=== PATIENT | male | born 1950 | race Caucasian/White ===

== ENCOUNTER 2020-01-19 00:17 | Outpatient (CLI) | payer MEDICARE, SELFPAY ==
[2020-01-19 17:37] LABS: SARS-CoV-2 RNA PCR Negative
== END 2020-01-19 00:18 | disposition home or self-care (01) ==
LOC: ANHCOVIDDT 00:17
PROVIDERS: PCP Internal Medicine; Visit Provider Internal Medicine Gastroenterology
DX: Z01.812 Encounter for preprocedural laboratory examination (principal); Z20.828 Contact with and (suspected) exposure to other viral communicable diseases
CPT/HCPCS: 87635; C9803; U0003

== ENCOUNTER 2020-01-22 00:54 | Day surgery (SDC) | payer MEDICARE, SELFPAY ==
[2020-01-14 15:03] VITALS: BMI 30.9
[2020-01-22 06:20] VITALS: BP 164/82; PULSE 61; RESP 16; TEMP 36.5; O2SAT 97; BMI 30.5
[2020-01-22] MEDS: LACTATED RINGERS 1,000 ML 150 ML IV CONT (06:35)
[2020-01-22 06:36] LABS: Glucose Point of Care 133 (65-105)
--- NOTE | 2020-01-22 06:48 | WPDANESEPPF ---
Anes - Initial Pre Proc Eval Procedure: Operation Date: 01/22/20 07:30 Proposed Procedures p Screening Colonoscopy - Julián Sommer MD Date/Time: 01/22/20 06:48 Surgeon: Julián Sommer MD Pre Op Diagnosis: Hx of Colon Polyps Patient Data Age: 69 Gender: M Height: 5 ft 7 in Weight: 88.5 kg Last Vital Signs Temp 36.5 C 01/22/20 06:20 Pulse 61 01/22/20 06:20 Resp 16 01/22/20 06:20 BP 164/82 H 01/22/20 06:20 Pulse Ox 97 01/22/20 06:20 Allergies Allergy/AdvReac Type Severity Reaction Status Date / Time No Known Allergies Allergy Verified 01/22/20 06:19 Home Medications Medication Instructions Recorded Confirmed Type aspirin [Adult Low Dose Aspirin] 81 mg PO DAILY 01/14/20 01/14/20 History atorvastatin 40 mg PO DAILY 01/14/20 01/14/20 History metformin 1,000 mg PO BID 01/14/20 01/14/20 History metoprolol tartrate 50 mg PO BID 01/14/20 01/14/20 History Laboratory Tests 01/22/20 06:31 POC Capillary Glucose 133 mg/dl H mg/dl (65-105) Patient hx anesthesia problems: none Family hx anesthesia problems: none PMFSH Past Medical History Medical History (Updated 01/22/20 @ 06:49 by Dhiraj Portillo MD) Diabetes HTN (hypertension) Obesity EDMUNDO on CPAP Surgical History Surgical History (Updated 01/22/20 @ 06:49 by Dhiraj Portillo MD) History of ankle surgery History of appendectomy Social History Social History Smoking packs per day: 1.5 Smoking cigarettes per day: 30.0 Smoking status: Former smoker Tobacco type: cigarettes and cigars Alcohol intake: current Drinks per week: 12 Substance use: former Substance use type: marijuana Other substance usage details: 40 YRS AGO Living arrangements: with family Spiritual care concerns: No Anes - Eval Final PreProcedure Day of Procedure 01/22/20 06:48 Patient weight: obese Heart: regular rate and rhythm Lungs: clear to auscultation Airway: Mallampati scale class III Neurological: alert and oriented Last oral intake: >/= 8 hours ASA classification: III Emergent: no Anesthetic plan: proceed Anesthesia type and monitoring: general GIVS and standard monitoring Informed Consent: The patient's anesthetic plan and its attendant risks and benefits were discussed with the patient/family/POA. Questions were solicited and answers provided to the satisfaction of the patient/family/POA.
--- NOTE | 2020-01-22 07:23 | WPDGICN ---
Assessment and Plan Assessment and plan (1) History of colon polyps: Code(s): Z86.010 - Personal history of colonic polyps Status: Acute Assessment and Plan: Patient has a history of colon polyps. Plan is for surveillance colonoscopy now and at 5 year intervals. GI Consult Note Consult date/time: 01/22/20 07:23 HPI: Que Hayes is a 69 year old male seen in evaluation at the request of Dr Lucien Fraser.Patient has a history of colon polyps in the past. Most recent colonoscopy was in 2014. Patient has done well since that time. His current weight appetite bowel movements are normal. He denies abdominal pain. He has had no bleeding. Family history is noncontributory. There is no family history of colon or rectal disease. Patient presents today for follow-up colonoscopy. Review of Systems Review of Systems: All systems reviewed & are unremarkable except as noted in HPI and below PMFSH Past Medical History Medical History (Updated 01/22/20 @ 07:25 by Julián Sommer MD) Diabetes HTN (hypertension) Obesity EDMUNDO on CPAP Surgical History Surgical History (Updated 01/22/20 @ 06:49 by Dhiraj Portillo MD) History of ankle surgery History of appendectomy Social History Social History Smoking packs per day: 1.5 Smoking cigarettes per day: 30.0 Smoking status: Former smoker Tobacco type: cigarettes and cigars Alcohol intake: current Drinks per week: 12 Substance use: former Substance use type: marijuana Other substance usage details: 40 YRS AGO Living arrangements: with family Spiritual care concerns: No Meds Home Medications and Allergies Home Medications Medication Instructions Recorded Confirmed Type aspirin [Adult Low Dose Aspirin] 81 mg PO DAILY 01/14/20 01/14/20 History atorvastatin 40 mg PO DAILY 01/14/20 01/14/20 History metformin 1,000 mg PO BID 01/14/20 01/14/20 History metoprolol tartrate 50 mg PO BID 01/14/20 01/14/20 History Allergies Allergy/AdvReac Type Severity Reaction Status Date / Time No Known Allergies Allergy Verified 01/22/20 06:19 Vital Signs Vital Signs - 24 hr 01/22/20 06:20 Temperature 97.7 F Pulse Rate 61 Respiratory Rate 16 Blood Pressure 164/82 H Pulse Oximetry 97 Exam Narrative: Exam Narrative: Physical exam reveals patient to be alert. Vital signs stable. HEENT exam unremarkable. Patient is anicteric. Lungs are clear to auscultation and percussion. Heart is without murmur or extra sounds. Abdominal exam bowel sounds are present soft nontender with no organomegaly. Digital external rectal exam normal.
[2020-01-22 07:52] VITALS: BP 117/70; PULSE 58; RESP 16; O2SAT 95
[2020-01-22 08:02] VITALS: BP 115/64; PULSE 54; RESP 13; O2SAT 97
[2020-01-22 08:12] VITALS: BP 150/82; PULSE 56; RESP 19; O2SAT 98
== END 2020-01-22 08:21 | disposition home or self-care (01) ==
PROVIDERS: PCP Internal Medicine; Visit Provider Internal Medicine Gastroenterology
PROC: 0DJD8ZZ Inspection of Lower Intestinal Tract, Via Natural or Artificial Opening Endoscopic (ICD-10-PCS; CPT 45378; principal; 2020-01-22 07:30)
DX: Z12.11 Encounter for screening for malignant neoplasm of colon (principal); K63.5 Polyp of colon; K64.8 Other hemorrhoids; I10 Essential (primary) hypertension; E11.9 Type 2 diabetes mellitus without complications; G47.33 Obstructive sleep apnea (adult) (pediatric); E66.9 Obesity, unspecified; Z68.30 Body mass index [BMI] 30.0-30.9, adult; Z87.891 Personal history of nicotine dependence; Z79.84 Long term (current) use of oral hypoglycemic drugs; Z79.82 Long term (current) use of aspirin
CPT/HCPCS: 45385; 88305; J2704; J7120

== ENCOUNTER 2024-08-21 08:01 | Outpatient (RCR) | payer MEDICARE, SELFPAY ==
[2024-08-21 08:11] VITALS: BMI 34.2
[2024-08-21 08:15] VITALS: BMI 34.2
== END 2024-11-05 10:20 | disposition home or self-care (01) ==
LOC: ANHDMC 08:01
PROVIDERS: PCP Internal Medicine; Visit Provider Internal Medicine
DX: E11.9 Type 2 diabetes mellitus without complications (principal); Z71.3 Dietary counseling and surveillance
CPT/HCPCS: 97802